=== PATIENT | male | born 1980 | race Caucasian/White ===

== ENCOUNTER 2021-10-29 10:23 | Day surgery (SDC) | payer BC, OTHER ==
[~2021-10-29] VITALS: Ht 177.8 cm; Wt 96.9 kg
[~2021-10-29 10:23] MED LIST: HYDACE5 PO; IBUP800 PO
--- NOTE | 2021-10-29 10:45 | NUR ---
10/29/21 1045 Tyler Rajan CALL LIGHT WITHIN REACH
--- NOTE | 2021-10-29 14:09 | NUR ---
10/29/21 1409 THERESA LINDSAY BP TAKEN SEVERAL TIMES. REMAINS ELEVATED. DR. PICHARDO STATES REPEAT SEVERAL BP. PT STATES HAVING PAIN.
--- NOTE | 2021-10-29 14:11 | NUR ---
10/29/21 1411 Soni Stephens INTRSCALING BLOCK PLACED IN OR WITHOUT DIFFICULTY.
--- NOTE | 2021-10-29 14:59 | NUR ---
10/29/21 1459 THERESA LINDSAY IV PUSH LABETALOL GIVEN IN 10ML SALINE- OVER 2 MINUTES
== END 2021-10-29 16:15 | disposition home or self-care (01) ==
LOC: ORSCSDS 10:23
PROVIDERS: Orthopaedic Surgery
PROC: 0PSL04Z Reposition Left Ulna with Internal Fixation Device, Open Approach (ICD-10-PCS; principal; 2021-10-29 11:45)
DX: S52.022A Displaced fracture of olecranon process without intraarticular extension of left ulna, initial encounter for closed fracture (principal); Z87.891 Personal history of nicotine dependence
CPT/HCPCS: A9270; C1713; J0690; J1100; J1885; J2250; J2405; J2704; J2795; J3010; J7120